=== PATIENT | female | born 1990 | race Caucasian/White ===

== ENCOUNTER → 2016-10-25 | Outpatient (CLI) | payer MEDICAID ==
--- NOTE | 2016-10-25 21:42 | RADIOLOGY REPORT PS360 ---
US PELVIS-TRANSVAGINAL ONLY ORDERING PHYSICIAN : Krystian Martins MD PATIENT AGE: 25 years GENDER: Female INDICATION: DUB dysfunctional uterine bleeding. Heavy vaginal bleeding one month. Passing clots TECHNIQUE: Transvaginal pelvic ultrasoundtv COMPARISON: 01/07/2015 FINDINGS : Uterus. 8.7 cm in length and 4.3 cm x 5.3 cm wide. no discrete uterine mass Mild inhomogeneous uterus is noted particularly axial views. Although no discrete fibroid delineated by technologist MW it would be be difficult to exclude a subtle 1 cm fibroid at the right margin of the uterus on the submitted images. Thickened endometrial stripe with active bleeding. Endometrium measures 1.25 cm AP with slightly undulating or slight lobulated appearing endometrial thickening involving the upper 3.5 cm of uterus. Thick endometrium is also seen on the previous December 2014 pelvic ultrasound Right ovary: 3.8 cm x 1.9 cmx 1.6 cm Most prominent cyst at right ovaryl measures up to 1.6 x 1.1 cm More inferiorly there is a 1.3 cm at the inferior margin right ovary. Left ovary: 2.3l cm x 1.3 cm x 2.5 cm. Small 6 mm cyst left ovary No fluid is seen at the cul-de-sac IMPRESSION Prominent, undulating thickening endometrial stripe with active bleeding Right ovary:. 2 cysts at right ovary.. Largest 1.6 cm & the other 1.3 cm No fluid in cul-de-sac
== END ==
LOC: RAD 10-13 14:45
DX: N92.0 Excessive and frequent menstruation with regular cycle (principal)